=== PATIENT | female | born 1985 | race Caucasian/White ===

== ENCOUNTER 2016-04-01 18:15 | Emergency (ER) | payer OTHER ==
[2016-04-01 19:02] VITALS: BP 132/70; PULSE 56; TEMP 98.4; BMI 44.9
[2016-04-01] MEDS ORDERED: OXYCODONE/APAP 5/325MG COMBO TABLET PO ONE (19:52)
--- NOTE | 2016-04-01 19:55 | PDOC ---
History of Present Illness - General Chief Complaint: Pain Stated Complaint: TOOTHACHE/HEADACHE Time Seen by Provider: 04/01/16 19:22 History Source: Patient Exam Limitations: No Limitations - History of Present Illness Initial Comments: 04/01/16 20:03 Chief complaint: Toothache Patient is a 30-year-old female with history of a toothache for over a week. Patient was states she was seen at another ER put on antibiotics and she's been taking Motrin 800 mg. Patient states she has an appointment with the dentist April 09. Patient states she took all the antibiotics but still has pain. GENERAL/CONSTITUTIONAL: No fever, weakness. dizziness HEAD, EYES, EARS, NOSE AND THROAT: No change in vision. No ear pain or discharge. No sore throat. CARDIOVASCULAR: No chest pain RESPIRATORY: No shortness of breath or cough GASTROINTESTINAL: No pain, nausea, vomiting, diarrhea or constipation GENITOURINARY: No dysuria MUSCULOSKELETAL: No neck or back pain SKIN: No rash NEUROLOGIC: No headache, vertigo, loss of consciousness, or loss of sensation. GENERAL: The patient is awake, alert, and fully oriented, in no acute distress. HEAD: Normal with no signs of trauma. EYES: Pupils equal, round and reactive to light, sclera anicteric, conjunctiva clear. ENT: pharynx: no erythema, no exudate, uvula midline, or dentition, no signs of erythema or acute abscess NECK: supple CHEST: clear, nontender, rr ABD: soft, nontender EXTREMITIES: Normal range of motion, no edema. NEUROLOGICAL: Normal speech, normal gait. SKIN: Warm, Dry Past History - Past Medical History Allergies/Adverse Reactions: Allergies Allergy/AdvReac Type Severity Reaction Status Date / Time Fish Containing Products Allergy Verified 04/01/16 19:02 fish derived Allergy Verified 04/01/16 19:02 Home Medications: Ambulatory Orders Famotidine [Pepcid -] 20 mg PO BID #30 tablet 04/27/13 Asthma: Yes Cardiac Disorders: Yes (MURMUR) - Psycho/Social/Smoking Cessation Hx Anxiety: Yes Suicidal Ideation: No Smoking History: Current every day smoker Number of Cigarettes Smoked Daily: 5 Information on smoking cessation initiated: No Hx Alcohol Use: No Substance Use Type: None *Physical Exam - Vital Signs Last Vital Signs Temp Pulse Resp BP Pulse Ox 98.4 F 56 L 18 132/70 98 04/01/16 19:00 04/01/16 19:00 04/01/16 19:00 04/01/16 19:00 04/01/16 19:00 Medical Decision Making - Medical Decision Making 04/01/16 20:07 With toothache, history of dental disease, seen at another ER. Took antibiotics. Still having pain. I stop patient, patient was in pain management through December. We'll give patient a dose of Percocet tonight and reinforced with her that she needs to see a dentist for proper treatment and not just take antibiotics and pain medicine. Patient was requesting more antibiotics and explained to patient that those or not needed. 04/01/16 20:22 Patient given information regarding dental urgent care and also for all the [facility] dental services *DC/Admit/Observation/Transfer Diagnosis at time of Disposition: Toothache - Discharge Dispostion Disposition: HOME Condition at time of disposition: Stable Admit: No - Referrals Referrals: Barry Womack MD [Primary Care Provider] - - Patient Instructions Printed Discharge Instructions: DI for Dental Pain Additional Instructions: Follow-up at any of the places listed or at a dentist that you know tomorrow for further evaluation You can continue to take the Motrin every 8 hours Return to the ER if fever or getting sicker
[2016-04-01] MEDS ORDERED: OXYCODONE/APAP 5/325MG COMBO TABLET ONE (19:57)
== END 2016-04-01 20:14 | disposition home or self-care (01) ==
LOC: JERFT 18:15
DX: K08.89 Other specified disorders of teeth and supporting structures (principal); R51 Headache
CPT/HCPCS: 99281-25

== ENCOUNTER 2016-10-17 07:52 | Inpatient (IN) | payer OTHER ==
[2016-10-16 10:45] VITALS: BMI 46.0
[2016-10-17] MEDS ORDERED: MIDAZOLAM HCL 2 MG/2 ML SINGLE DOSE VIAL ONE (09:39)
[2016-10-17] MEDS ORDERED: NEOSTIGMINE METHYLSULFATE 0.5 MG/ML - 10 ML MDV ONE (11:07)
[2016-10-17] MEDS ORDERED: ceFAZolin SODIUM 1 GM VIAL IVPB ONE (12:07)
[2016-10-17] MEDS ORDERED: ALBUTEROL SO4 0.083% IH SOL 2.5 MG/3 ML VIAL.NEB. NEB PRN (13:57)
--- NOTE | 2016-10-17 13:57 | OP ---
Operative Note - Note: Operative Date: 10/17/16 Pre-Operative Diagnosis: Morbid obesity Operation: Laparoscopic vertical sleeve gastrectomy Findings: No leak/obstruction Post-Operative Diagnosis: Same as Pre-op Surgeon: Wilfrid Rodríguez Conciliation Court Judge: Smooth Chong Anesthesia: General Specimens Removed: Greater curvature of the stomach Estimated Blood Loss (mls): 30 Drains & Tubes with Location: 36 Fr Bougie Operative Report Dictated: Yes
--- NOTE | 2016-10-17 13:58 | HP ---
History & Physical Update - History History: No Change - Physical Physical: No Change - Assessment Assessment: No Change - Plan Plan: No Change Currently as noted:: Laparoscopic vertical sleeve gastrectomy for morbid obesity
[2016-10-17] MEDS ORDERED: HYDROmorphone HCL CARPU-JECT 2 MG/1 ML DISP.SYRIN ONE ×2 (14:14→16:20)
[2016-10-17] MEDS: HYDROmorphone HCL CARPU-JECT 1 MG/1 ML DISP.SYRIN IVPUSH PRN ×4 (14:14→16:32)
[2016-10-17] MEDS ORDERED: LACTATED RINGERS SOLUTION 1,000 ML IV SCH (14:15)
[2016-10-17 15:42] LABS: MCH 28.5 pg (25.7-33.7); MEAN CELL VOLUME 86.4 fl (80-96); MEAN PLT VOLUME 8.4 fl (7.5-11.1); PLATELET COUNT 222 K/MM3 (134-434); WHITE BLOOD COUNT 12.3 K/mm3 (4.0-10.0)
[2016-10-17 16:05] LABS: ALBUMIN 3.1 g/dl (3.4-5.0); ANION GAP 8 (8-16); BILIRUBIN,TOTAL 0.6 mg/dL (0.2-1.0); CO2 26 mmol/L (21-32); CREATININE 0.8 mg/dL (0.55-1.02); GLUCOSE,RANDOM 155 mg/dL (74-106); SGOT/AST 55 U/L (15-37); SGPT/ALT 45 U/L (12-78); TOT PROT 6.5 g/dl (6.4-8.2)
[2016-10-17 16:06] LABS: ALK PHOS 83 U/L (45-117)
[2016-10-17] MEDS ORDERED: METOCLOPRAMIDE HCL INJECTION 10 MG/2 ML VIAL ONE (16:42)
[2016-10-17] MEDS ORDERED: ONDANSETRON 4 MG/2 ML VIAL ONE (16:42)
[2016-10-17] MEDS: METOCLOPRAMIDE HCL INJECTION 10 MG/2 ML VIAL IVPB SCH ×3 (16:45→19:53)
[2016-10-17] MEDS: ONDANSETRON 4 MG/2 ML VIAL IVPB SCH ×4 (17:15→21:38)
--- NOTE | 2016-10-17 17:46 | SURG ---
Surgery Packing And Stamping Machine Operator Note Packing And Stamping Machine Operator: Smooth Chong PA-C Date of Service: 10/17/16 Diagnosis: Morbid obesity Procedure: Laparoscopic vertical sleeve gastrectomy I was present for the entirety of the operative procedure. For further detail, please refer to operative report. Visit type - Case Type Case Type: Scheduled Admission - New patient This patient is new to me today: Yes Date on this admission: 10/17/16
[2016-10-17] MEDS: HYDROmorphone HCL CARPU-JECT 1 MG/1 ML DISP.SYRIN IVPB PRN (17:53)
[2016-10-17] MEDS: SODIUM CHLORIDE 1,000 ML IV SCH ×2 (18:57→21:39)
[2016-10-17] MEDS: ACETAMINOPHEN 1000 MG/100 ML VIAL (NON FORMULARY) IVPB SCH ×2 (18:58→20:43)
[2016-10-17] MEDS: ENOXAPARIN NA (PORCINE) 40 MG/0.4 ML DISP.SYRIN SQ SCH (21:38)
[2016-10-17] MEDS: FAMOTIDINE 20 MG/50 ML IVPB 50 ML IVPB SCH (21:38)
[2016-10-18] MEDS: METOCLOPRAMIDE HCL INJECTION 10 MG/2 ML VIAL IVPB SCH ×5 (01:18→21:11)
[2016-10-18] MEDS: ACETAMINOPHEN 1000 MG/100 ML VIAL (NON FORMULARY) IVPB SCH ×2 (01:50→11:51)
[2016-10-18] MEDS: ONDANSETRON 4 MG/2 ML VIAL IVPB SCH ×5 (03:36→21:17)
[2016-10-18] MEDS: SODIUM CHLORIDE 1,000 ML IV SCH (06:35)
[2016-10-18 08:15] LABS: MCH 29.1 pg (25.7-33.7); MCHC 33.6 g/dl (32.0-36.0); MEAN CELL VOLUME 86.8 fl (80-96); MEAN PLT VOLUME 8.5 fl (7.5-11.1); PLATELET COUNT 205 K/MM3 (134-434); RDW 13.3 % (11.6-15.6); WHITE BLOOD COUNT 10.3 K/mm3 (4.0-10.0)
[2016-10-18 08:18] LABS: ALBUMIN 2.7 g/dl (3.4-5.0); ALK PHOS 72 U/L (45-117); ANION GAP 6 (8-16); CALCIUM 7.8 mg/dL (8.5-10.1); CO2 24 mmol/L (21-32); GLUCOSE,RANDOM 93 mg/dL (74-106); SGOT/AST 36 U/L (15-37); SGPT/ALT 37 U/L (12-78)
[2016-10-18 08:19] LABS: BILIRUBIN,TOTAL 0.4 mg/dL (0.2-1.0); CREATININE 0.7 mg/dL (0.55-1.02); TOT PROT 5.9 g/dl (6.4-8.2)
[2016-10-18] MEDS: ENOXAPARIN NA (PORCINE) 40 MG/0.4 ML DISP.SYRIN SQ SCH ×2 (09:18→21:16)
[2016-10-18] MEDS: FAMOTIDINE 20 MG/50 ML IVPB 50 ML IVPB SCH ×2 (09:18→22:09)
[2016-10-18] MEDS: HYDROmorphone HCL CARPU-JECT 1 MG/1 ML DISP.SYRIN IVPB PRN (10:22)
--- NOTE | 2016-10-18 11:15 | SPEC ---
DATE OF OPERATION: 10/17/2016 SURGEON: Nathan Rodríguez MD BEHAVIORAL INTERVENTIONIST: Smooth Chong PA-C PREOPERATIVE DIAGNOSIS: Morbid obesity. POSTOPERATIVE DIAGNOSIS: Morbid obesity. PROCEDURE: Laparoscopic vertical sleeve gastrectomy. SPECIMEN: Greater curvature of the stomach. ESTIMATED BLOOD LOSS: 30 mL DRAINS: None. ANESTHESIA: GET. BOUGIE: 36-Irish. REASON FOR PROCEDURE: This is a 31-year-old female who presented for weight loss/bariatric options. After discussing the different treatment options, she decided to proceed with laparoscopic, possible open vertical sleeve gastrectomy. RISKS AND BENEFITS: After describing the different options for weight loss management, the patient decided to proceed with a laparoscopic, possible open vertical sleeve gastrectomy. The patient was seen by the respective subspecialties and cleared for surgery. The risks and benefits of the procedure were explained. These included bleeding, infection, hernia, NE, DVT, PE, injury to surrounding structures including the liver, colon, bowel, spleen, esophagus, vessel injury, nerve injury, weight regain, gastric leak, staple line leak, sleeve leak, obstruction, vitamin deficiency, hair loss, and as some of the possible complications. The patient understood and signed informed consent. DESCRIPTION OF PROCEDURE: The patient was placed supine on the operating room table. The patient underwent general endotracheal intubation. A Low catheter was inserted. The arms were brought out at 90 degrees and secured. A foot board was placed, and the legs were secured laterally with padding. The abdomen was prepped and draped in the usual sterile fashion. A timeout was performed. An incision was made in the left upper quadrant, and a Veress needle inserted. Pneumoperitoneum was established. Subsequently, the Veress needle was removed, and a 12-mm trocar was placed. The laparoscopic camera was inserted, and inspection of the abdominal cavity was performed. An incision was made in the supraumbilical region, and a 15-mm trocar placed under direct visualization. A 5-mm trocar was then placed in the right upper quadrant, and a 5-mm trocar placed below the left subcostal margin. A stab wound was made in the subxiphoid area, and a Nidia clamp inserted and removed to dilate the tract. A Thang liver retractor was inserted. The post was secured at the bedside by the nursing staff. The patient was placed in steep reverse Trendelenburg position. The Thang liver retractor was used to secure the liver towards the anterior abdominal wall. The pylorus was identified and 6 cm proximal to it, the lesser sac was entered using the Ligasure device. All lateral attachments to the greater curvature of the stomach including the short gastric vessels were ligated using the Ligasure device toward the gastrosplenic and gastrophrenic ligaments. Once this was done in its entirety, it was confirmed that all tubes within the nasal or oropharyngeal cavity including a temperature probe was removed by Anesthesia. The bougie was then inserted by Anesthesia. Transection of the stomach was then begun staying adjacent to the bougie but away from the angularis. Transection of the stomach was performed near the portion of the stomach where the lesser sac was entered. Two laparoscopic Endo-GIUSEPPE black loads were used at this location. Laparoscopic Endo-GIUSEPPE purple loads were then used for the remainder of the transection until the greater curvature of the stomach was fully transected. This was done staying close to the bougie. Care was taken to stay away from the angle of His cephalad. The staple line was then inspected. Hemostasis was identified. A leak test was then performed. The stomach was clamped distally to the staple line. Irrigation solution was placed in the left upper quadrant, and air insufflated by Anesthesia into the sleeve. No leaks were identified, and no obstruction was identified. This was done throughout the entirety of the staple line. At this point, the irrigation solution was suctioned, and again hemostasis noted. The 15-mm supraumbilical trocar was then removed, and the specimen removed from the site using a sponge stick moura. The specimen was inspected, and a Veress needle inserted. The specimen insufflated adequately, and no leak was identified. The staple line was noted to be intact. A Frank Tristan device was then used to temporarily close the fascia with a 0 Vicryl suture at this site. The 15-mm trocar was then reinserted, and the 12-mm trocar in the left upper quadrant removed. The fascia at this site was then closed using a Frank Tristan device with a 0 Vicryl suture. Again, hemostasis was noted. The Thang liver retractor was then removed under direct visualization. Pneumoperitoneum was desufflated, and the fascial sutures were secured. Hemostasis was noted at all incision sites, and Marcaine was injected at all incision sites. All incision sites were closed using 4-0 Biosyn. Sterile dressings were applied. The patient tolerated the procedure well, and was transferred to the recovery room in stable condition with the Low catheter intact. The patient was transferred to telemetry for further monitoring. NATHAN RODRÍGUEZ M.D. [id number]
--- NOTE | 2016-10-18 11:33 | PN ---
Progress Note (short form) - Note Progress Note: POD 1 Laparoscopic vertical sleeve gastrectomy Pain controlled with medication Mild nausea Vital Signs Period Temp Pulse Resp BP Sys/Scott Pulse Ox Last 24 Hr 97.8 F-99.1 F 62-83 16-20 105-127/54-88 95-100 Abd soft CBC, BMP 10/18/16 05:53 10/18/16 05:53 UGI- no leak/obstruction Clears OOB D/C planning in am
--- NOTE | 2016-10-18 11:34 | DS ---
Physical Examination Vital Signs: Vital Signs Temperature 99.1 F 10/18/16 08:20 Pulse Rate 71 10/18/16 08:20 Respiratory Rate 20 10/18/16 08:20 Blood Pressure 116/70 10/18/16 08:20 O2 Sat by Pulse Oximetry (%) 95 10/17/16 21:00 Constitutional: Yes: Calm Eyes: Yes: WNL HENT: Yes: WNL Neck: Yes: Supple Cardiovascular: Yes: Regular Rate and Rhythm Respiratory: Yes: CTA Bilaterally Gastrointestinal: Yes: Soft Extremities: Yes: WNL Wound/Incision: Yes: Dressing Dry and Intact Neurological: Yes: Alert, Oriented Labs: CBC, BMP 10/18/16 05:53 10/18/16 05:53 Discharge Summary Reason For Visit: LOWER BACK PAIN/MORBID OBESITY Current Active Problems Morbid (severe) obesity due to excess calories (Acute) Procedures: Principal: Laparoscopic vertical sleeve gastrectomy Condition: Stable - Instructions Diet, Activity, Other Instructions: [address] [place] [address] Wilfrid Rodríguez M.D. [address] [place] [address], [address] [facility] [address] [facility] [place] [address] Robotic, Bariatric and General Surgery Postoperative Instructions for Bariatric Surgery Activity: Resume normal everyday activity as tolerated. You may walk and climb stairs without any limitation. We encourage you to walk as often as you can Do not lift anything more than 10 pounds for 8 weeks. At that time, you can return to full activity, including the gym, without limitation. Do not drive a motor vehicle while taking prescribes narcotic pain medication. Wound Care: If you have a bandage in place, leave it on for 3 days. At that time you may remove the outer bandage. If there are strips of tape on the skin after removing the outer bandage, leave them in place. They will fall off by themselves. Do not remove them. If there is clear glue on the skin after removing the outer bandage, leave it in place. Do not pick at it or peel it off. You may shower after taking the outer bandage off, 3 days after your surgery. If incisions become red, warm or open, please call the office. Diet: Continue a sugar-free, non-carbonated Clear liquid diet three times a day for the first week-Stage I diet. In addition, you should drink 8 ounces of water every hour. When drinking, sips should be slow and steady, not large and quick. After the first week, call the office to be advanced to the next dietary stage. Do not advance stages until instructed. Your diet will be advanced over the phone each week. Medications/Pain Management: You may resume previous medications unless told otherwise. The pills may be swallowed whole or broken if scored. You may take the prescribed narcotic pain medication as needed. If the narcotic medication is not needed for pain control, you may take Tylenol. Avoid all other pain medications including Advil, Ibuprofen, Motrin, Aspirin, Naprosyn, Aleve, Celebrex. You will receive Pepcid. Please take this twice a day as prescribed. Dizziness,Headaches/Gas Pain: Make sure you are getting enough fluids daily. Patients on diuretics or water pills may need medication adjusted. Some fluids such as broth or Gatorade may help. Gas pains are common in the first few weeks after surgery. At times they can be worse than surgical pain. Walking can help. You can also use Mylanta, Maalox, or Gas-X. Vomiting/Nausea: This may occur if you eat too fast, don't chew, or eat too much. Go back to fluids. If the vomiting or nausea persists, call the office. Constipation/Diarrhea: You may experience a change in bowel habits. Many things affect this, including a decrease in food intake, not enough fluid and taking pain medication. Some people experience diarrhea after the barium swallow in x-ray. If either persist, call the office. Follow up: Call the office at [phone] for an appointment 2 weeks after your surgical procedure. Disposition: HOME - Home Medications Comprehensive Discharge Medication List: Ambulatory Orders Albuterol 0.083% Nebulizer Miesha [Ventolin 0.083%] 1 neb NEB Q4H PRN 10/16/16 Naproxen Sodium 550 mg PO BID 10/16/16 Famotidine [Pepcid] 20 mg PO BID #60 tablet 10/17/16 Oxycodone HCl/Acetaminophen [Percocet 5-325 mg Tablet] 1 - 2 tab PO Q6H #28 tab MDD 4 10/17/16
--- NOTE | 2016-10-18 11:53 | PN ---
Progress Note (short form) - Note Progress Note: Anesthesia postop note 31 y/o GF s/p GA for laparoscopic sleeve gastrectomy POID#1, vss, aaox3, reports some pain, nausea and vomiting. No anesthesia complications.
[2016-10-18] MEDS ORDERED: ACETAMINOPHEN 325 MG TABLET (FP) PO PRN (12:51)
[2016-10-18] MEDS ORDERED: SODIUM CHLORIDE 1,000 ML IV SCH (13:00)
[2016-10-18] MEDS: oxyCODONE HCL 5 MG TABLET PO PRN ×2 (16:31→22:09)
[2016-10-19] MEDS: METOCLOPRAMIDE HCL INJECTION 10 MG/2 ML VIAL IVPB SCH ×2 (01:14→09:21)
[2016-10-19] MEDS: ONDANSETRON 4 MG/2 ML VIAL IVPB SCH ×2 (02:11→06:39)
[2016-10-19 05:52] VITALS: BP 133/79; PULSE 71; TEMP 97.9
[2016-10-19] MEDS: FAMOTIDINE 20 MG/50 ML IVPB 50 ML IVPB SCH (09:21)
[2016-10-19] MEDS: ENOXAPARIN NA (PORCINE) 40 MG/0.4 ML DISP.SYRIN SQ SCH (09:21)
--- NOTE | 2016-10-21 11:00 | PATH ---
Surgical Pathology Report Patient Name: SANGEETA WANG [facility]. Rec. #: [id number] /Age/Gender: 1985 (Age: 31) / F Account: [id number] Location: 4 W TELEMETRY U Taken: 10/17/2016 Received: 10/18/2016 Reported: 10/21/2016 Physicians: Wilfrid Rodríguez M.D. Specimen(s) Received GREATER CURVATURE OF STOMACH Clinical History Morbid obesity Final Diagnosis STOMACH, GREATER CURVATURE, SLEEVE GASTRECTOMY: PORTION OF STOMACH WITH MILD CHRONIC GASTRITIS. IMMUNOSTAIN FOR H. PYLORI IS POSITIVE (FEW ORGANISMS). Electronically Signed Umer Banerjee M.D. Gross Description Received in formalin, labeled "greater curvature of stomach," is a 148 gram, 20.0 x 5.5 x 3.5 cm. portion of stomach with a stapled margin of resection. The serosa is echeverria-waddell with minimal attached fat. The mucosa is echeverria-pink with focally flattened folds No mucosal masses are identified. Electrical Controls Assembler sections are submitted in one cassette. /10/18/2016 [facility]/10/18/2016
== END 2016-10-19 09:41 | disposition home or self-care (01) | DRG 403 ==
LOC: JASUSAT 07:52 → JSAMEDAYSX 13:53 → J4W 17:20
PROVIDERS: ADMIT Surgery; ATTEND Surgery
PROC: 0DB64Z3 Excision of Stomach, Percutaneous Endoscopic Approach, Vertical (ICD-10-PCS; principal; 2016-10-17 09:30)
DX: E66.01 Morbid (severe) obesity due to excess calories (principal); Z68.42 Body mass index [BMI] 45.0-49.9, adult; R11.0 Nausea; M54.5 Low back pain; J45.909 Unspecified asthma, uncomplicated
CPT/HCPCS: 36415; 74241-TC; 80053; 84703; 85027; 88305-TC; 94010; 94760

== ENCOUNTER 2018-04-22 08:51 | Emergency (ER) | payer OTHER ==
[2018-04-22 08:59] VITALS: BP 103/74; PULSE 69; TEMP 98.1; BMI 25.7
--- NOTE | 2018-04-22 09:24 | PDOC ---
History of Present Illness - General Chief Complaint: Injury Stated Complaint: FALL Time Seen by Provider: 04/22/18 09:08 History Source: Patient Exam Limitations: No Limitations Past History - Past Medical History Allergies/Adverse Reactions: Allergies Allergy/AdvReac Type Severity Reaction Status Date / Time azithromycin [From Zithromax] Allergy Rash Verified 04/22/18 09:12 Fish Containing Products Allergy Verified 04/22/18 09:12 fish derived Allergy Verified 04/22/18 09:12 Home Medications: Ambulatory Orders NK [No Known Home Medication] 04/22/18 Anemia: No Asthma: Yes Cancer: No Cardiac Disorders: Yes (MURMUR "checked by cardiac sonographer said it was OK") CVA: No COPD: No CHF: No Dementia: No Diabetes: No (borderline) GI Disorders: No Disorders: No HTN: No Hypercholesterolemia: No Liver Disease: No Seizures: No Thyroid Disease: No Other medical history: anxiety - Immunization History Immunization Up to Date: No - Suicide/Smoking/Psychosocial Hx Smoking History: Current every day smoker Have you smoked in the past 12 months: No Number of Cigarettes Smoked Daily: 5 Information on smoking cessation initiated: No 'Breaking Loose' booklet given: 10/17/16 Hx Alcohol Use: No Drug/Substance Use Hx: No Substance Use Type: None Hx Substance Use Treatment: No *Physical Exam - Vital Signs Last Vital Signs Temp Pulse Resp BP Pulse Ox 98.1 F 69 16 103/74 99 04/22/18 08:56 04/22/18 08:56 04/22/18 08:56 04/22/18 08:56 04/22/18 08:56 - Physical Exam General Appearance: No: Apparent Distress HEENT: positive: EOMI, ALBA, Normal Voice, Pharynx Normal, Other (+Abrasion to L side of forehead with mild swelling, no nasal swelling) Respiratory/Chest: positive: Lungs Clear, Normal Breath Sounds. negative: Respiratory Distress Cardiovascular: positive: Regular Rhythm, Regular Rate, S1, S2. negative: Murmur Gastrointestinal/Abdominal: positive: Normal Bowel Sounds, Soft. negative: Tender, Distended, Guarding, Rebound Integumentary: positive: Normal Color Neurologic: positive: coremaking machine setter II-XII NML intact, Fully Oriented, Alert, Normal Mood/ Affect, Normal Response, Motor Strength 5/5 Moderate Sedation - Procedure Monitoring Vital Signs: Procedure Monitoring Vital Signs Temperature 98.1 F 04/22/18 08:56 Pulse Rate 69 04/22/18 08:56 Respiratory Rate 16 04/22/18 08:56 Blood Pressure 103/74 04/22/18 08:56 O2 Sat by Pulse Oximetry (%) 99 04/22/18 08:56 Medical Decision Making - Medical Decision Making 32 y/o F hx of asthma, ADHD, herniated disc, depression/anxiety presents with accidentally hitting her head against wall while getting ready for work. Mentions while she was turning around, she didn't notice wall and hit her head. Denies LOC, but mentions feeling a bit dazed after incident and feeling a bit forgetful. Denies headache, n/v, numbness/tingling/weakness of extremities, visual/gait changes, sob, cp. Likely mild concussion Stable for d/c 04/22/18 09:19 *DC/Admit/Observation/Transfer Diagnosis at time of Disposition: Concussion Qualifiers: Encounter type: initial encounter Loss of consciousness presence/duration: without LOC Qualified Code(s): S06.0X0A - Concussion without loss of consciousness, initial encounter - Discharge Dispostion Disposition: HOME Condition at time of disposition: Stable Decision to Admit order: No - Referrals Referrals: Barry Womack MD [Primary Care Provider] - 3 days - Patient Instructions Printed Discharge Instructions: DI for Concussion Additional Instructions: Thank you for choosing [facility]. It was a pleasure taking care of you. Likely you have mild concussion. Recommend rest. You may apply ice to area of swelling on forehead You may take Tylenol 650 mg every 4 hours by mouth as needed for mild to moderate pain. Do not take more than 4000 mg of Tylenol in 1 day. Return to the Emergency Department if your symptoms worsen or persist, you have fever, severe headache, weakness of extremities, vomiting, seizures or other concerning symptoms. - Post Discharge Activity
== END 2018-04-22 09:34 | disposition home or self-care (01) ==
LOC: JER 08:51
DX: S06.0X0A Concussion without loss of consciousness, initial encounter (principal); W22.01XA Walked into wall, initial encounter; Y93.89 Activity, other specified; Y92.009 Unspecified place in unspecified non-institutional (private) residence as the place of occurrence of the external cause; J45.909 Unspecified asthma, uncomplicated; F90.9 Attention-deficit hyperactivity disorder, unspecified type; F41.8 Other specified anxiety disorders
CPT/HCPCS: 99281-25

== ENCOUNTER 2019-05-31 09:41 | Emergency (ER) | payer OTHER ==
[2019-05-31 09:54] VITALS: BP 106/53; PULSE 64; TEMP 97.8; BMI 28.3
[2019-05-31] MEDS ORDERED: diazePAM 5 MG TABLET PO ONE (11:20)
[2019-05-31] MEDS ORDERED: KETOROLAC TROMETHAMINE 30 MG/1 ML VIAL IM ONE (11:20)
[2019-05-31] MEDS ORDERED: KETOROLAC TROMETHAMINE 30 MG/1 ML VIAL ONE (11:24)
[2019-05-31] MEDS ORDERED: diazePAM 5 MG TABLET ONE (11:24)
--- NOTE | 2019-05-31 12:11 | PDOC ---
History of Present Illness - General Chief Complaint: Pain Stated Complaint: LT LEG PAIN/BACK PAIN Time Seen by Provider: 05/31/19 11:01 History Source: Patient Exam Limitations: No Limitations - History of Present Illness Initial Comments: 05/31/19 12:03 33-year-old with history of chronic back pain status post an injury at work 4 years ago, bulging disks to cervical and lumbar spine, left knee dislocation 2 years ago presents complaining of traumatic left knee pain radiating upward to left lower back and downward to left foot for 1 month. Pain has worsened since last night. Describes pain as numbing with tingling. Denies fever, trauma, urinary or bowel incontinence. Has been taking ibuprofen 600 mg as needed, last dose was yesterday. Patient does not have a primary care, orthopedist or pain management at this time. Patient had lumbar nerve block 4 years ago and had physical therapy sessions 2 years ago all of which did help with her symptoms. ROS: GENERAL/CONSTITUTIONAL: No fever, chills, weakness, dizziness HEAD, EYES, EARS, NOSE AND THROAT: No changes in vision, No ear pain or discharge, No sore throat CARDIOVASCULAR: No chest pain RESPIRATORY: No shortness of breath or cough GASTROINTESTINAL: No pain, nausea, vomiting, diarrhea or constipation GENITOURINARY: No dysuria MUSCULOSKELETAL: Back pain, left knee pain SKIN: No rash NEUROLOGIC: No headache, vertigo, loss of consciousness, or loss of sensation PE: GENERAL: well-appearing, NAD HEAD: NCAT EYES: Pupils equal, round and reactive to light, sclera anicteric, conjunctiva clear ENT: pharynx: no erythema, no exudate, uvula midline NECK: supple CHEST: nontender RESP: clear, no w/r/r CARDIO: rrr, no m/g/r ABD: +BS, soft, nontender, non distended BACK: no midline spinal ttp, no CVAT EXTREMITIES: Normal range of motion, no edema, 5/5 strength and sensation NEUROLOGICAL: Normal speech, walking with slight limp SKIN: Warm, Dry 05/31/19 12:14 Is this a multiple visit Asthma Patient?: No Past History - Past Medical History Allergies/Adverse Reactions: Allergies Allergy/AdvReac Type Severity Reaction Status Date / Time azithromycin [From Zithromax] Allergy Rash Verified 05/31/19 09:50 Fish Containing Products Allergy Verified 05/31/19 09:50 fish derived Allergy Verified 05/31/19 09:50 Home Medications: Ambulatory Orders NK [No Known Home Medication] 04/22/18 Anemia: No Asthma: Yes Cancer: No Cardiac Disorders: Yes (MURMUR "checked by clerical assigner said it was OK") CVA: No COPD: No CHF: No Dementia: No Diabetes: No (borderline) GI Disorders: No Disorders: No HTN: No Hypercholesterolemia: No Liver Disease: No Seizures: No Thyroid Disease: No - Immunization History Immunization Up to Date: No - Psycho Social/Smoking Cessation Hx Smoking History: Never smoked Have you smoked in the past 12 months: No Number of Cigarettes Smoked Daily: 5 Information on smoking cessation initiated: No 'Breaking Loose' booklet given: 10/17/16 Hx Alcohol Use: No Drug/Substance Use Hx: No Substance Use Type: None Hx Substance Use Treatment: No *Physical Exam - Vital Signs Last Vital Signs Temp Pulse Resp BP Pulse Ox 97.8 F 64 18 106/53 L 99 05/31/19 09:50 05/31/19 09:50 05/31/19 09:50 05/31/19 09:50 05/31/19 09:50 ED Treatment Course - RADIOLOGY Radiology Studies Ordered: Category Date Time Status KNEE 2 POS-LEFT [RAD] Stat Radiology 05/31/19 11:20 Completed SPINE-LUMBAR SACRAL [RAD] Stat Radiology 05/31/19 11:21 Taken - Medications Given in the ED: ED Medications Discontinued Medications Generic Name Dose Route Start Last Admin Trade Name Freq PRN Reason Stop Dose Admin Diazepam 5 mg 05/31/19 11:20 05/31/19 11:25 Valium - PO 05/31/19 11:21 5 mg ONCE ONE Administration Ketorolac Tromethamine 30 mg 05/31/19 11:20 05/31/19 11:24 Toradol Injection - IM 05/31/19 11:21 30 mg ONCE ONE Administration Medical Decision Making - Medical Decision Making 05/31/19 12:15 33-year-old female complaining of atraumatic left knee pain radiating up to the left lower back and also radiating down left lower extremity x1 month. Pain has worsened this morning, denies fever urinary or bowel incontinence. IM Toradol P.o. Valium Patient ambulating with slight limp No midline spinal tenderness to palpation Left knee and lumbar spine films with no acute findings Advised follow-up with orthopedics and blood bank specialist Discharge - Discharge Information Problems reviewed: Yes Clinical Impression/Diagnosis: Back pain Qualifiers: Back pain location: low back pain Chronicity: unspecified Back pain laterality : left Sciatica presence: with sciatica Sciatica laterality: sciatica of left side Qualified Code(s): M54.42 - Lumbago with sciatica, left side Condition: Stable Disposition: HOME - Admission No - Follow up/Referral Referrals: Giuseppe Cordova MD [Staff Physician] - Chet Campos MD, FAANS [Staff Physician] - Leidy Chaudhry MD [Staff Physician] - - Patient Discharge Instructions Additional Instructions: Today between acetaminophen 650 and ibuprofen 600 mg every 6 hours You must call and make an appointment with an orthopedist and a neurosurgeon within 1 to 2 weeks If you develop fever, weakness, difficulty walking, urinary or bowel incontinence return to ED - Post Discharge Activity
== END 2019-05-31 12:49 | disposition home or self-care (01) ==
LOC: JERFT 09:41
PROC: 3E0233Z Introduction of Anti-inflammatory into Muscle, Percutaneous Approach (ICD-10-PCS; principal; 2019-05-31)
DX: M54.42 Lumbago with sciatica, left side (principal); Z91.013 Allergy to seafood; Z88.1 Allergy status to other antibiotic agents
CPT/HCPCS: 72100-TC-FY; 73560-TC-LT-FY; 96372; 99284-25

== ENCOUNTER 2019-06-08 10:19 | Emergency (ER) | payer OTHER ==
[2019-06-08 10:35] VITALS: BP 107/70; PULSE 81; TEMP 98; BMI 30.2
[2019-06-08] MEDS ORDERED: ACETAMINOPHEN 500 MG TABLET (FP) PO ONE (11:35)
[2019-06-08] MEDS ORDERED: ACETAMINOPHEN 500 MG TABLET (FP) ONE (11:37)
--- NOTE | 2019-06-08 11:41 | PDOC ---
History of Present Illness - General Chief Complaint: Back Pain Stated Complaint: BACK PAIN/LEG PAIN Time Seen by Provider: 06/08/19 11:19 - History of Present Illness Initial Comments: 06/08/19 11:36 33-year-old female with neck and lower back pain. Patient states 4 years ago she had a surgery on her neck and lower back. Without any precipitating traumatic event over the last week or so she has been developing increasing neck and lower back pain. She has history of gastric sleeve. She has no systemic symptoms loss of bowel or bladder function or saddle paresthesias. She does have left leg radicular symptoms Past History - Past Medical History Allergies/Adverse Reactions: Allergies Allergy/AdvReac Type Severity Reaction Status Date / Time azithromycin [From Zithromax] Allergy Rash Verified 05/31/19 09:50 Fish Containing Products Allergy Verified 05/31/19 09:50 fish derived Allergy Verified 05/31/19 09:50 Home Medications: Ambulatory Orders Cyclobenzaprine HCl [Flexeril 10 mg] 10 mg PO HS PRN #10 tablet 06/08/19 Methylprednisolone [Medrol Dose Nitin] 4 mg PO ASDIR #21 tablet 06/08/19 Anemia: No Asthma: Yes Cancer: No Cardiac Disorders: Yes (MURMUR "checked by technical professional said it was OK") CVA: No COPD: No CHF: No Dementia: No Diabetes: No (borderline) GI Disorders: No Disorders: No HTN: No Hypercholesterolemia: No Liver Disease: No Seizures: No Thyroid Disease: No - Immunization History Immunization Up to Date: No - Psycho Social/Smoking Cessation Hx Smoking History: Unknown if ever smoked Have you smoked in the past 12 months: No Number of Cigarettes Smoked Daily: 5 Information on smoking cessation initiated: No 'Breaking Loose' booklet given: 10/17/16 Hx Alcohol Use: Yes Drug/Substance Use Hx: No Substance Use Type: None Hx Substance Use Treatment: No Review of Systems - Review of Systems Constitutional: No: Chills, Fever, Night Sweats Musculoskeletal: Yes: Back Pain, Neck Pain *Physical Exam - Vital Signs Last Vital Signs Temp Pulse Resp BP Pulse Ox 98.0 F 81 18 107/70 100 06/08/19 10:32 06/08/19 10:32 06/08/19 10:32 06/08/19 10:32 06/08/19 10:32 - Physical Exam 06/08/19 11:37 Cervical spine skin color and temperature normal range of motion is slightly limited. There is no midline tenderness. Mild bilateral paracervical musculature spasm and tenderness. 5 out of 5 strength bilateral upper extremities without gross sensorimotor deficits neurovascular intact. Lumbar spine skin color temperature normal range of motion is slightly decreased. No midline tenderness. Moderate bilateral paralumbar musculature spasm and tenderness 5 out of 5 strength bilateral lower extremities without gross sensorimotor deficits thighs and calves are soft and nontender neurovascular intact Medical Decision Making - Medical Decision Making 06/08/19 11:37 There are no visible scars on the cervical or lumbar spine. I do not appreciate any surgical incisions. I will treat the patient in the emergency room with Tylenol send her home with Flexeril and Medrol Dosepak she assures me there is no chance of she will follow-up with her spine surgeon next week as scheduled Discharge - Discharge Information Problems reviewed: Yes Clinical Impression/Diagnosis: Back pain, Lumbar radiculopathy, Cervical strain Condition: Stable Disposition: HOME - Admission No - Additional Discharge Information Prescriptions: Cyclobenzaprine HCl [Flexeril 10 mg] 10 mg PO HS PRN #10 tablet PRN Reason: Muscle Spasms Methylprednisolone [Medrol Dose Nitin] 4 mg PO ASDIR #21 tablet - Follow up/Referral Referrals: Chet Campos MD, FAANS [Staff Physician] - - Patient Discharge Instructions Additional Instructions: Please take the Medrol Dosepak as directed. The Flexeril 1 tablet before bedtime will make you sleepy. Return to the emergency room for worsening symptoms and without fail follow-up with your spine surgeon in 1 to 2 days for further evaluation and treatment options. Do not take any anti-inflammatories such as Advil Motrin Aleve or ibuprofen. This is contraindicated because of your quick gastric sleeve surgery. - Post Discharge Activity
== END 2019-06-08 11:47 | disposition home or self-care (01) ==
LOC: JERFT 10:19
DX: S16.1XXA Strain of muscle, fascia and tendon at neck level, initial encounter (principal); M54.16 Radiculopathy, lumbar region; X58.XXXA Exposure to other specified factors, initial encounter; Y93.89 Activity, other specified; Y92.89 Other specified places as the place of occurrence of the external cause; Y99.8 Other external cause status; Z98.890 Other specified postprocedural states; Z88.1 Allergy status to other antibiotic agents; Z88.6 Allergy status to analgesic agent; Z88.5 Allergy status to narcotic agent; Z91.013 Allergy to seafood
CPT/HCPCS: 99282-25

== ENCOUNTER 2021-03-21 14:07 | Emergency (ER) | payer OTHER ==
[2021-03-21 14:34] VITALS: BP 110/76; PULSE 67; TEMP 98; BMI 35.2
== END 2021-03-21 17:13 | disposition home or self-care (01) ==
LOC: JERFT 14:07
DX: R21 Rash and other nonspecific skin eruption (principal)
CPT/HCPCS: 99283-25

== ENCOUNTER 2022-05-15 18:53 | Emergency (ER) | payer OTHER ==
[2022-05-15 19:00] VITALS: BP 116/68; PULSE 91; RESP 20; TEMP 98.6; BMI 35.1
== END 2022-05-15 22:14 | disposition home or self-care (01) ==
LOC: JERFT 18:53
DX: K08.89 Other specified disorders of teeth and supporting structures (principal)
CPT/HCPCS: 99283-25

== ENCOUNTER 2023-03-07 15:18 | Emergency (ER) | payer OTHER ==
[2023-03-07 15:27] VITALS: BP 120/76; PULSE 61; RESP 19; TEMP 100; BMI 31.1
[2023-03-07] MEDS ORDERED: ACETAMINOPHEN 500 MG TABLET (FP) PO ONE (15:40)
[2023-03-07] MEDS ORDERED: ACETAMINOPHEN 500 MG TABLET (FP) ONE (15:54)
== END 2023-03-07 17:03 | disposition home or self-care (01) ==
LOC: JERFT 15:18
DX: R05.9 Cough, unspecified (principal); R09.81 Nasal congestion; R50.9 Fever, unspecified; U07.1 COVID-19
CPT/HCPCS: 0241U-QW; 99283-25